=== PATIENT | female | born 1950 | race American Indian/Alaskan Native ===

== ENCOUNTER → 2017-09-09 20:05 | Outpatient (CLI) | payer MEDICARE, MEDICAID ==
[2015-09-19 12:43] VITALS: BMI 39.5
[~2017-09-09 20:05] MED LIST: ABILIFY10 MG PO; ABILIFY2 MG; ASPIRIN EC81 M1 PO; ASPIRIN EC81 MG; ATIVAN1 MG; ATIVAN1 MG PO; BYSTOLIC5 MG PO; CARAFATE1 G PO; CRESTOR10 MG PO; DEXILANT30 MG PO; FLEXERIL10 MG PO; GLIPIZIDE10 MG PO; GLUCOPHAGE500 MG PO; GREEN COFFEE BEAN; K-TAB10 MEQ PO; LASIX40 MG PO; LEVOXYL200 MCG PO; LEVOXYL25 MCG PO; LEXAPRO20 MG PO; MOBIC7.5 MG PO; NEURONTIN 300300 MG; NEURONTIN 300300 MG PO; PLAQUENIL200 MG PO; PLAVIX75 MG PO; PROAIR HFA8.5 GM; PROVENTIL HFA6.7 GM INH; SALAGEN7.5 MG PO; SYMBICORT 16010.2 GM INH; TRIAZOLAM0.125 MG PO; TYLENOL PM1 TAB PO; ULTRAM50 MG PO; VITAMIN D31000 UNIT PO
== END | disposition home or self-care (01) ==
LOC: EDBD 11:00 → D.MAMMO 11:00
DX: Z12.31 Encounter for screening mammogram for malignant neoplasm of breast (principal)

== ENCOUNTER 2018-06-11 17:13 | Emergency (ER) | payer MEDICARE, MEDICAID ==
[~2018-06-11] VITALS: Ht 179.1 cm; Wt 107.3 kg
[2018-06-11 17:21] VITALS: Ht 179.1 cm; Wt 107.3 kg
[2018-06-11] MEDS ORDERED: VISTARIL25 MG PO (19:51)
[2018-06-11 19:57] VITALS: BP 148/63
== END 2018-06-11 19:57 | disposition home or self-care (01) ==
LOC: D.ER 17:13
DX: T36.3X5A Adverse effect of macrolides, initial encounter (principal); Y92.531 Health care provider office as the place of occurrence of the external cause

== ENCOUNTER 2020-08-18 15:29 | Emergency (ER) | payer MEDICARE ==
[~2020-08-18] VITALS: Ht 179.1 cm; Wt 104.5 kg
[~2020-08-18 15:29] MED LIST changes: +VISTARIL25 MG PO
[2020-08-18 15:30] VITALS: BP 139/62; Ht 179.1 cm; Wt 104.5 kg
[2020-08-18 15:41] LABS: BASOPHILS 0 % (0-2); EOSINOPHILS 0.2 % (0-7); HEMATOCRIT 34.6 % (36.0-48.0); HEMOGLOBIN 11.8 g/dL (12-16); LYMPHOCYTE ABS# 1.09 10x3/uL (1.18-3.74); LYMPHOCYTES 17.3 % (15-50); MCH 29.5 pg (26.0-34.0); MCHC 34.1 g/dL (31.0-37.0); MCV 86.5 fL (80.0-100.0); MEAN PLATELET VOLUME 9.7 fL (7.4-10.4); MONOCYTES 4.4 % (2-11); NEUTROPHIL ABS# 4.92 10x3/uL (1.56-6.13); NEUTROPHILS 78.1 % (40-80); PLATELET COUNT 190 10x3/uL (130-400); RDW 13.6 % (11.5-14.5); WBC 6.3 10x3/uL (4.8-10.8)
[2020-08-18 15:46] LABS: CALC OSMOLALITY 277 mosm/kg (275-300); CALCIUM 8.6 mg/dL (8.5-10.1); CARBON DIOXIDE 27.2 mmol/L (21.0-32.0); CHLORIDE - SERUM 99 mmol/L (98-107); CREATININE - SERUM 0.8 mg/dL (0.6-1.3); POTASSIUM - SERUM 3.8 mmol/L (3.5-5.1); SODIUM 136 mmol/L (136-145); UREA NITROGEN 15 mg/dL (7-18); eGFR NON AFRICAN AMERICAN 75 mL/min (90-120)
[2020-08-18 16:03] LABS: ALBUMIN 3.7 g/dL (3.4-5.0); ALKALINE PHOSPHATASE 87 U/L (30-120); ALT (SGPT) 24 U/L (10-68); BILIRUBIN - TOTAL 0.59 mg/dL (0.2-1.3); CKMB 1.2 U/L (0.0-3.6); CREATINE KINASE 58 UL (21-215); PRO BNP 115 pg/mL (0-125); PROTEIN - SERUM 6.8 g/dL (6.4-8.2); TROPONIN-I < 0.017 ng/mL (0.000-0.060)
[2020-08-18 16:04] LABS: GLUCOSE 197 mg/dL (74-106)
[2020-08-18 16:15] LABS: INR 1.12 (0.85-1.17); PROTIME 13.4 SECONDS (11.6-15.0)
[2020-08-18] MEDS ORDERED: ALBUTEROL SULF8.5 GM INH (16:50)
== END 2020-08-18 17:16 | disposition home or self-care (01) ==
LOC: D.ER 15:29 → EDBD 15:29 → D.ER 17:16
PROVIDERS: Emergency Medicine
DX: D71 Functional disorders of polymorphonuclear neutrophils (principal); R06.02 Shortness of breath; E11.9 Type 2 diabetes mellitus without complications; I10 Essential (primary) hypertension; E03.9 Hypothyroidism, unspecified; Z79.84 Long term (current) use of oral hypoglycemic drugs